=== PATIENT | male | born 1980 | race African-American/Black ===

== ENCOUNTER → 2019-07-26 | Outpatient (CLI) | payer MEDICAID | LOC: M OUTALCOH 10:34 | PROVIDERS: ATTEND Psychiatry & Neurology Psychiatry | DX: Z03.89 Encounter for observation for other suspected diseases and conditions ruled out (principal) ==

== ENCOUNTER 2019-08-03 15:19 | Outpatient (RCR) | payer MEDICAID | END 2019-08-12 | LOC: M OUTALCOH 15:19 | PROVIDERS: ATTEND Psychiatry & Neurology Psychiatry | DX: Z03.89 Encounter for observation for other suspected diseases and conditions ruled out (principal) ==

== ENCOUNTER 2022-08-01 16:27 | Emergency (ER) | payer MEDICAID, OTHER ==
[~2022-08-01] VITALS: Ht 165.1 cm; Wt 59.1 kg
[2022-08-01] MEDS ORDERED: DOXY-443 PO (19:10)
[2022-08-01 19:19] VITALS: BP 120/75
== END 2022-08-01 20:24 | disposition home or self-care (01) ==
LOC: M ED 16:27
DX: L03.114 Cellulitis of left upper limb (principal); Z87.09 Personal history of other diseases of the respiratory system; F17.200 Nicotine dependence, unspecified, uncomplicated